=== PATIENT | female | born 1995 | race African-American/Black ===

== ENCOUNTER 2017-08-07 09:04 | Emergency (ER) | payer SELFPAY ==
[2017-08-07] MEDS ORDERED: LIDOCAINE 5% (700 MG) TRANSDERMAL ADH..PATCH TP ONE (10:15)
--- NOTE | 2017-08-07 10:27 | ER Document Report ---
ED Neck/Back Problem - General Chief Complaint: Back Pain Stated Complaint: BACK PAIN Time Seen by Provider: 08/07/17 09:59 Notes: 21 yo healthy female c/o pain to lower mid back x 1 week. the pain is very superficial overlying a tattoo. pt reports she has had the tattoo for over 2 yrs. There is a keloid scar to the border of the tattoo and this seems to be the origin of the pain. pt denies any fever, trauma, paresthesia, radiculopathy or bowel/bladder dysfunction TRAVEL OUTSIDE OF THE [place] IN LAST 30 DAYS: No - HPI Patient complains to provider of: Lower back Onset: Last week Onset: Sudden Timing: Constant Quality of pain: Sharp Pain Level: 5 - painful when touched Recent injury: No Associated symptoms: None Exacerbated by: Other - touch Similar symptoms previously: No Recently seen / treated by doctor: No - Related Data Allergies/Adverse Reactions: No Known Allergies Allergy (Unverified 08/07/17 09:08) Past Medical History - General Information source: Patient - Social History Smoking Status: Never Smoker Chew tobacco use (# tins/day): No Frequency of alcohol use: None Drug Abuse: None Occupation: [employer] Lives with: Family Family History: Reviewed & Not Pertinent Renal/ Medical History: Denies: Hx Peritoneal Dialysis Past Surgical History: Reports: Hx Abdominal Surgery - umbilical hernia repair Review of Systems - Review of Systems Constitutional: No symptoms reported EENT: No symptoms reported Cardiovascular: No symptoms reported Respiratory: No symptoms reported Gastrointestinal: No symptoms reported Genitourinary: No symptoms reported Female Genitourinary: No symptoms reported Musculoskeletal: See HPI Skin: See HPI Hematologic/Lymphatic: No symptoms reported Neurological/Psychological: No symptoms reported Physical Exam - Vital signs Vitals: Temp Pulse Resp BP Pulse Ox 98.2 F 72 14 141/85 H 100 08/07/17 09:08 08/07/17 09:08 08/07/17 09:08 08/07/17 09:08 08/07/17 09:08 Interpretation: Normal - General General appearance: Appears well, Alert - HEENT Head: Normocephalic, Atraumatic Eyes: Normal Pupils: PERRL - Respiratory Respiratory status: No respiratory distress Chest status: Nontender Breath sounds: Normal Chest palpation: Normal - Cardiovascular Rhythm: Regular Heart sounds: Normal auscultation Murmur: No - Abdominal Inspection: Normal Distension: No distension Bowel sounds: Normal Tenderness: Nontender Organomegaly: No organomegaly - Back Back: Tender - + exquisite tenderness to very light touch to keloidal edge of tattoo on lower mid back. there is no vertebral tenderness. there is no redness or warmth. there is no induration. pt is able to walk without difficulty - Extremities General upper extremity: Normal inspection, Nontender, Normal color, Normal ROM , Normal temperature General lower extremity: Normal inspection, Nontender, Normal color, Normal ROM , Normal temperature, Normal weight bearing. No: Mario's sign - Neurological Neuro grossly intact: Yes Cognition: Normal Orientation: AAOx4 [place] Coma Scale Eye Opening: Spontaneous [place] Coma Scale Verbal: Oriented [place] Coma Scale Motor: Obeys Commands [place] Coma Scale Total: 15 Speech: Normal Motor strength normal: LUE, RUE, LLE, RLE Sensory: Normal - Psychological Associated symptoms: Normal affect, Normal mood - Skin Skin Temperature: Warm Skin Moisture: Dry Skin Color: Normal Course - Re-evaluation Re-evalutation: 08/07/17 10:27 patient's pain seems anatomically very superficial, isolated to the skin. The surrounding muscles do not appear sore. I do not appreciate any s/s infection or abscess. There is no vertebral tenderness, no neurological red flags to indicate any cauda equina or cord impingement. No emergent imaging is indicated. I will provide topical analgesia with lidoderm patch. Pt instructed to change patch every 12h. I will write Rx Ibuprofin for discomfort. Pt is agreeable with plan and stable for discharge - Vital Signs Vital signs: Temp Pulse Resp BP Pulse Ox 98.2 F 72 14 141/85 H 100 08/07/17 09:08 08/07/17 09:08 08/07/17 09:08 08/07/17 09:08 08/07/17 09:08 Discharge - Discharge Clinical Impression: Back pain Qualifiers: Back pain location: low back pain Chronicity: acute Back pain laterality: midline Sciatica presence: without sciatica Qualified Code(s): M54.5 - Low back pain Condition: Stable Disposition: HOME, SELF-CARE Instructions: Low Back Pain ([facility]), Warm Packs ([facility]), Ibuprofen (General) ([facility]) Additional Instructions: Change lidoderm patches every 12h You may purchase similar patches over the counter I recommend topical relief with Aspercreme or similar product Take Motrin for inflammation and discomfort Follow up with your primary care if symptoms persist Return to ER for any worsening
[2017-08-07 11:02] VITALS: BP 124/79
== END 2017-08-07 11:01 | disposition home or self-care (01) ==
LOC: ER 09:04
DX: M54.5 Low back pain (principal); L91.0 Hypertrophic scar
CPT/HCPCS: 99283

== ENCOUNTER 2017-10-13 20:06 | Emergency (ER) | payer SELFPAY ==
[2017-10-13 20:17] VITALS: BP 123/81
[2017-10-13] MEDS ORDERED: LIDOCAINE 1% INJ-PF (10 MG/ML) 30 ML SDV INJ ONE (20:46)
--- NOTE | 2017-10-13 21:50 | ER Document Report ---
ED Wound - General Chief Complaint: Laceration Stated Complaint: HAND LACERATION Time Seen by Provider: 10/13/17 20:40 Mode of Arrival: Ambulatory Information source: Patient Notes: Patient is a 22-year-old black female comes emergency room complaining of laceration to her left hand. Patient states she was cutting slim gems to put into her soup when her knife slipped in her right hand and she cut the palmar side of her hand just below the right index finger. There is a approximately a 2 cm linear laceration in the area. Patient states that she could not move the finger in all directions and has no problems with feeling. Denies any other injuries and currently bleeding is controlled. Patient states that she is up-to -date on her tetanus shot. TRAVEL OUTSIDE OF THE [place] IN LAST 30 DAYS: No - HPI Patient complains to provider of: Laceration, Incision problem Occurred: Just prior to arrival Onset/Duration: Sudden Quality of pain: Sharp, Throbbing Severity: Moderate Pain Level: 3 Context: Injury Skin Temperature: Warm Skin Color: Normal Capillary refill: < 3 seconds Sensations intact: Yes Distal pulses present: Yes Associated Symptoms: Bleeding - Related Data Allergies/Adverse Reactions: No Known Allergies Allergy (Unverified 08/07/17 09:08) Past Medical History - General Information source: Patient, Friend Last Menstrual Period: October 02, 2017 - Social History Smoking Status: Never Smoker Cigarette use (# per day): No Chew tobacco use (# tins/day): No Smoking Education Provided: No Frequency of alcohol use: Rare Drug Abuse: None Occupation: Works as a riri in a store Lives with: Family Family History: Reviewed & Not Pertinent Patient has suicidal ideation: No Patient has homicidal ideation: No Renal/ Medical History: Denies: Hx Peritoneal Dialysis Past Surgical History: Reports: Hx Abdominal Surgery - umbilical hernia repair Review of Systems - Review of Systems Constitutional: No symptoms reported EENT: No symptoms reported Cardiovascular: No symptoms reported Respiratory: No symptoms reported Gastrointestinal: No symptoms reported Genitourinary: No symptoms reported Female Genitourinary: No symptoms reported Musculoskeletal: Joint swelling Skin: Other - Examination of patient's hand on the right side shows her to have a linear laceration that runs at the base of the right index finger perpendicular to the orientation of the index finger. There is no arterial bleeding that can be noted however there is moderate amount of bleeding after palpation. Patient has no tendon involvement that we can tell. I did apply tourniquet to the wrist area slowed the bleeding down and could not see any type of a tendon problem. Could not see a tendon.. Patient has full flexion and extension of the right index finger she had good cap refill in the nail bed of the right index finger and again she has good strength to resistance in all directions. Hematologic/Lymphatic: No symptoms reported Neurological/Psychological: No symptoms reported -: Yes All other systems reviewed and negative Physical Exam - Vital signs Vitals: Temp Pulse Resp BP Pulse Ox 98.7 F 87 20 123/81 99 10/13/17 20:16 10/13/17 20:16 10/13/17 20:16 10/13/17 20:16 10/13/17 20:16 Interpretation: Normal - General General appearance: Appears well, Other - Uncomfortable In distress: None - HEENT Head: Normocephalic, Atraumatic - Respiratory Respiratory status: No respiratory distress Chest status: Nontender Breath sounds: Normal. No: Decreased air movement, Nonproductive cough, Productive cough, Rales, Rhonchi, Stridor, Wheezing, Other - Cardiovascular Rhythm: Regular Heart sounds: Normal auscultation - Extremities General upper extremity: Tender, Normal ROM, Normal strength, Normal temperature Hand: Tender, No evidence of FB, Other - As stated in the review of systems where I inadvertently placed this exam. Patient has no involvement of the tendon either flexor tendon. We did view under bloodless field with a tourniquet applied to the wrist and again no tendon seen or any abnormality of the tendon seen. Patient has good strength with resistance in all directions she is good cap refill of the nailbed of the right index finger. The actual lacerations approximately 2 cm that runs perpendicular to the orientation of the right index finger. Bleeding is controlled.. No: Normal, Nontender, Abrasion, Deformity, Dislocation, Ecchymosis, Instability, Laceration, Nail injury, No evidence of human bite, Swelling, Tendon deficit - Skin Skin Temperature: Warm Skin Moisture: Dry Skin Color: Normal, [place], Other - See hand in general exam. Course - Vital Signs Vital signs: Temp Pulse Resp BP Pulse Ox 98.7 F 87 20 123/81 99 10/13/17 20:16 10/13/17 20:16 10/13/17 20:16 10/13/17 20:16 10/13/17 20:16 Procedures - Immobilization Right Volar Finger 2nd digit Immobilizer type: Finger protection, Finger splint (Static) Performed by: PCT Post-Proc Neuro Vasc Exam: Normal Alignment checked and good: Yes - Laceration/Wound Repair Right Volar Finger Wound length (cm): 2 Wound's Depth, Shape: Linear Laceration pre-procedure: Betadine prep applied, Chloraprep applied, Sterile drapes applied, Shur-Clens applied Anesthetic type: 1% Lidocaine Volume Anesthetic (mLs): 6 Irrigated w/ Saline (mLs): 500 Wound Repaired With: Sutures Suture Size/Type: 4:0, Prolene Number of Sutures: 4 Layer Closure?: No Post-procedure NV exam normal: Yes Complications: No Discharge - Discharge Clinical Impression: Hand laceration Qualifiers: Encounter type: initial encounter Foreign body presence: without foreign body Laterality: right Qualified Code(s): S61.411A - Laceration without foreign body of right hand, initial encounter Condition: Good Disposition: HOME, SELF-CARE Instructions: Antibiotic Ointment Protection ([facility]), Laceration Care ([facility]) Additional Instructions: Use the immobilizer for the next 3 days. Also keep the finger from pulling or putting too much stress and pulling the sutures out. You may apply an antibiotic cream or ointment to the area and continue to keep a dressing on it for the next 5 or 6 days. Also suggested keeping it is clean and dry as possible for the next 48 hours. Should you have any concerns or problems if it does not appear to be healing well return to ER for a recheck. Return to ER for suture removal in 8-10 days. Again return to ER sooner if you have any concerns or problems. Call of the antibiotics. Prescriptions: Sulfamethoxazole/Trimethoprim [Bactrim Ds Tablet] 1 each PO BID #14 tablet Forms: Elevated Blood Pressure, Return to Work
== END 2017-10-13 22:08 | disposition home or self-care (01) ==
LOC: ER 20:06
DX: S61.210A Laceration without foreign body of right index finger without damage to nail, initial encounter (principal); X78.1XXA Intentional self-harm by knife, initial encounter; Y93.G1 Activity, food preparation and clean up
CPT/HCPCS: 99282

== ENCOUNTER 2017-10-19 14:24 | Emergency (ER) | payer SELFPAY ==
--- NOTE | 2017-10-19 14:34 | ER Document Report ---
HPI - HPI Pain Level: 2 Notes: Patient is a 22-year-old female presents ED for suture removal status post laceration repair to the right anterior hand about 6 days ago. Patient states she had 4 sutures placed. Patient states that she has not washed her hand since the incident. Patient states that she has not picked up her antibiotics either. Patient otherwise has no other concerns or complaints. She has not noticed any purulent discharge, obvious wound dehiscence, streaks, or abscess. Denies any headache, fever, chest pain, palpitations, syncope, cough, shortness of breath, wheeze, dyspnea, abdominal pain, nausea/vomiting/diarrhea, dysuria, hematuria, numbness/tingling, muscle paralysis/weakness, or rash. - ROS Notes: REVIEW OF SYSTEMS: CONSTITUTIONAL : Denies fever, chills, or sweats. Denies recent illness. EENT: Denies eye, ear, throat, or mouth pain or symptoms. Denies nasal or sinus congestion or discharge. Denies throat, tongue, or mouth swelling or difficulty swallowing. CARDIOVASCULAR: Denies chest pain. Denies palpitations or racing or irregular heart beat. RESPIRATORY: Denies cough, cold, or chest congestion. Denies shortness of breath, difficulty breathing, or wheezing. GASTROINTESTINAL: Denies abdominal pain or distention. Denies nausea, vomiting , or diarrhea. GENITOURINARY: Denies difficulty urinating, painful urination, burning, frequency, blood in urine, or discharge. MUSCULOSKELETAL: Denies back or neck pain or stiffness. Denies joint pain or swelling. SKIN: see hpi NEUROLOGICAL: Denies dizziness or lightheadedness. Denies headache. Denies weakness or paralysis or loss of use of either side. Denies problems with gait or speech. Denies sensory loss, numbness, or tingling. Denies seizures. ALL OTHER SYSTEMS REVIEWED AND NEGATIVE. Dictation was performed using [employer] voice recognition software Past Medical History - Social History Smoking Status: Unknown if Ever Smoked Family History: Reviewed & Not Pertinent Renal/ Medical History: Denies: Hx Peritoneal Dialysis Past Surgical History: Reports: Hx Abdominal Surgery - umbilical hernia repair Vertical Provider Document - CONSTITUTIONAL Agree With Documented VS: Yes Notes: PHYSICAL EXAMINATION: GENERAL: Well-appearing, well-nourished and in no acute distress. LUNGS: Breath sounds clear to auscultation bilaterally and equal. No wheezes rales or rhonchi. HEART: Regular rate and rhythm without murmurs, rubs, gallops. Musculoskeletal: Rt hand/fingers: FROM to passive/active. Strength 5+/5. N/v intact distal. Non-tender. Extremities: No cyanosis, clubbing, or edema b/l. Peripheral pulses 2+. Capillary refill less than 3 seconds. NEUROLOGICAL: Cranial nerves grossly intact. Normal speech, normal gait. Normal sensory, motor exams PSYCH: Normal mood, normal affect. SKIN: 4 sutures noted to be in place. No wound dehiscence. There is an abundant amount of scabbing covering the sutures--pt did not wash her hands. No erythema, abscess, purulence, streaks. - INFECTION CONTROL TRAVEL OUTSIDE OF THE [place] IN LAST 30 DAYS: No Course - Re-evaluation Re-evalutation: 10/19/17 15:21 Patient is an afebrile, well-hydrated, 22-year-old female presents ED for suture removal to the right volar hand. Vitals are stable. PE is otherwise unremarkable for any neurovascular compromise, obvious wound dehiscence, site infection, obvious fracture/dislocation, obvious ligament/tendon rupture. Sutures removed successfully without any complications and the wound was then lightly scrubbed and cleaned. Advised patient to shrimp picker her antibiotics and start them as directed and monitor for any signs of infection. Recheck with your PCM in 3-5 days. Return to the ED with any worsening/concerning symptoms otherwise as reviewed in discharge. Patient is in agreement. Discharge - Discharge Clinical Impression: Encounter for removal of sutures Condition: Stable Disposition: HOME, SELF-CARE Instructions: Suture Removal Additional Instructions: Keep the skin clean Wash with soap and water Tylenol/ibuprofen if needed Take medication as directed Monitor for any worsening symptoms Recheck with your PCM in 3-5 days Return to the ED with any worsening symptoms and/or development of fever, headache, chest pain, palpitations, syncope, shortness of breath, trouble breathing, abdominal pain, n/v/d, abscess, purulent discharge, red streaks, worsening swelling, or other worsening symptoms that are concerning to you. Referrals: [facility] [Provider Group] - Follow up as needed [facility] [Provider Group] - Follow up as needed
[2017-10-19 14:36] VITALS: BP 136/84
== END 2017-10-19 14:49 | disposition home or self-care (01) ==
LOC: ER 14:24
DX: S61.411D Laceration without foreign body of right hand, subsequent encounter (principal); X58.XXXD Exposure to other specified factors, subsequent encounter